=== PATIENT | female | born 1990 | race Hispanic/Latino ===

== ENCOUNTER 2020-02-17 05:35 | Day surgery (SDC) | payer MEDICAID ==
[2020-02-16 11:48] LABS: BASOPHILS % (AUTO) 0.5 % (0.0-5.0); EOSINOPHILS % (AUTO) 0.5 % (0.0-8.0); HEMATOCRIT 42.1 % (36-48); LYMPHOCYTES % (AUTO) 27.2 % (21.0-51.0); MEAN CORPUSCULAR HEMOGLOBIN 29.3 pg (27.0-33.0); MEAN CORPUSCULAR HGB CONC 32.3 g/dL (32.0-36.0); MEAN CORPUSCULAR VOLUME 90.7 fL (79-99); MONOCYTES % (AUTO) 5.4 % (3.0-13.0); NEUTROPHILS % (AUTO) 66.1 % (40.0-77.0); PLATELET COUNT (AUTO) 265 K/uL (130-400); RED BLOOD CELL COUNT(AUTO) 4.64 MIL/uL (4.00-5.50); RED CELL DISTRIBUTION WIDTH 14.5 % (11.0-15.5); WHITE BLOOD COUNT (AUTO) 6.3 K/uL (4.8-10.8)
[2020-02-16 16:06] VITALS: BP 121/60
[2020-02-17] VITALS (17 sets, daily range): BP systolic 105–131; BP diastolic 49–84
[~2020-02-17] VITALS: Ht 167.6 cm; Wt 74.4 kg
[~2020-02-17 05:35] MED LIST: CETI10TA57 PO; IBUP-2784 PO
[2020-02-17] MEDS ORDERED: CEFAZOLIN SODIUM 1 GM VIAL ONE (06:14)
[2020-02-17] MEDS ORDERED: LACTATED RINGERS 1000ML 1,000 ML IV ONE (06:14)
[2020-02-17] MEDS ORDERED: ACET1TAB25 PO (06:54)
[2020-02-17] MEDS ORDERED: MONT10TA26 PO (06:54)
[2020-02-17] MEDS ORDERED: CEPH500T PO (06:54)
[2020-02-17] MEDS ORDERED: MIDAZOLAM HCL 1 MG/ML 2ML VIAL ONE ×2 (07:33→08:32)
[2020-02-17] MEDS ORDERED: LACTATED RINGERS 1000ML 1,000 ML IV SCH (08:00)
[2020-02-17] MEDS ORDERED: DEXAMETHASONE SOD PHOSPHATE 10MG/ML 1ML VIAL ONE (08:32)
[2020-02-17] MEDS ORDERED: PROPOFOL 10 MG/ML 20ML VIAL IV ONE ×2 (08:32→09:48)
[2020-02-17] MEDS ORDERED: ONDANSETRON HCL 4 MG/2 ML VIAL ONE ×2 (08:32→10:32)
[2020-02-17] MEDS ORDERED: LIDOCAINE PF 2% 5ML ABBOJECT ONE (08:32)
[2020-02-17] MEDS ORDERED: ROCURONIUM 10MG/1ML SYR 10 MG/ML ML ONE (08:33)
[2020-02-17] MEDS ORDERED: FENTANYL CITRATE PF 50 MCG/1 ML 2ML VIAL ONE (08:33)
[2020-02-17] MEDS ORDERED: MEPERIDINE-PF 25 MG/ML SYG ONE ×2 (10:33→10:43)
--- NOTE | 2020-02-17 11:20 | NUR ---
post op received pt and report from nick stanton rn. pt in no distress at this time. pt oriented to room and call light. will continue to monitor pt.
--- NOTE | 2020-02-17 11:45 | NUR ---
md dr enrique called and spoke to friend with results.
--- NOTE | 2020-02-17 11:55 | NUR ---
discharge pt and friend given d/c instructions and voiced understanding. pt taken out via w/c by [facility].
== END 2020-02-17 11:55 | disposition home or self-care (01) ==
LOC: DAH 05:35
PROVIDERS: ATTEND Obstetrics & Gynecology
DX: N80.1 Endometriosis of ovary (principal); Z20.828 Contact with and (suspected) exposure to other viral communicable diseases; N73.6 Female pelvic peritoneal adhesions (postinfective); N93.9 Abnormal uterine and vaginal bleeding, unspecified
CPT/HCPCS: 36415 ×3; 58662; 84703; 85025; 86850; 86900; 86901; 88305; A4215 ×2; A4221; A4222; A4223; A4344; A4510; A4600; A4606; A4649 ×4; A4663; C1769 ×2; C9803; J1100; J2001; J2175 ×2; J2250 ×2; J2405 ×2; J2704 ×2; J3010; J7030; J7120 ×2; U0003; J0690

== ENCOUNTER 2022-12-01 08:03 | Observation (INO) | payer MEDICAID ==
[~2022-12-01] VITALS: Ht 167.6 cm; Wt 86.6 kg
[~2022-12-01 08:03] MED LIST changes: +ACET-2079 PO; +CEPH500T PO; +MONT-39 PO
[2022-12-01 08:04] VITALS: BP 154/70; PULSE 83; RESP 20
[2022-12-01 09:07] LABS: HEMATOCRIT 29.9 % (36-48); MEAN CORPUSCULAR HEMOGLOBIN 28.7 pg (27.0-33.0); MEAN CORPUSCULAR HGB CONC 32.8 g/dL (32.0-36.0); MEAN CORPUSCULAR VOLUME 87.4 fL (79-99); RED BLOOD CELL COUNT(AUTO) 3.42 MIL/uL (4.00-5.50); WHITE BLOOD COUNT (AUTO) 7.3 K/uL (4.8-10.8)
[2022-12-01 09:19] LABS: APPEARANCE,URINE CLOUDY (CLEAR); BILIRUBIN,URINE NEGATIVE (NEGATIVE); COLOR,URINE LIGHT-YELLOW (YELLOW); GLUCOSE, URINE (UA) NEGATIVE (NEGATIVE); KETONES,URINE NEGATIVE (NEGATIVE); LEUKOCYTE ESTERASE ,URINE 75 Leu/uL (NEGATIVE); NITRATE,URINE NEGATIVE (NEGATIVE); OCCULT BLOOD,URINE NEGATIVE (NEGATIVE); PROTEIN,URINE NEGATIVE (NEGATIVE); UROBILINOGEN,URINE 0.2 mg/dL (0.2-1.0)
[2022-12-01 09:20] LABS: ALANINE AMINOTRANSFERASE 11 U/L (12-78); ALBUMIN 2.3 g/dL (3.5-5.0); ASPARTATE AMINOTRANSFERASE 12 U/L (10-37); BILIRUBIN,DIRECT < 0.1 mg/dL (0.0-0.3); BILIRUBIN,TOTAL 0.2 mg/dL (0.2-1.0)
[2022-12-01 09:23] LABS: ADD UA MICROSCOPIC YES
[2022-12-01 09:38] LABS: BACTERIA,URINE RARE /HPF (None Seen); MUCUS,URINE RARE LPF (None Seen); RBC,URINE 0-1 /HPF (0-1); SQUAMOUS EPITHELIAL CELL,UR MOD /HPF (0-2)
== END 2022-12-01 10:05 | disposition home or self-care (01) ==
LOC: EDH 08:03 → LDH 08:04
PROVIDERS: ADMIT Obstetrics & Gynecology; ATTEND Obstetrics & Gynecology
DX: O62.9 Abnormality of forces of labor, unspecified (principal); O26.893 Other specified pregnancy related conditions, third trimester; L29.9 Pruritus, unspecified; Z3A.33 33 weeks gestation of pregnancy; Z79.899 Other long term (current) drug therapy
CPT/HCPCS: 59025; 80076; 85027; 87088; 81001; 36415; G0378 ×2; G0379

== ENCOUNTER 2022-12-02 06:30 | Observation (INO) | payer MEDICAID ==
[~2022-12-02] VITALS: Ht 167.6 cm; Wt 87.1 kg
[2022-12-02 06:31] VITALS: BP 173/91; PULSE 64; RESP 16
[2022-12-02] MEDS ORDERED: LACTATED RINGERS 1000ML IV PRN (07:00)
[2022-12-02 08:05] LABS: HEMATOCRIT 32.4 % (36-48); MEAN CORPUSCULAR HEMOGLOBIN 28.2 pg (27.0-33.0); MEAN CORPUSCULAR HGB CONC 32.7 g/dL (32.0-36.0); MEAN CORPUSCULAR VOLUME 86.2 fL (79-99); PLATELET COUNT (AUTO) 185 K/uL (130-400); RED BLOOD CELL COUNT(AUTO) 3.76 MIL/uL (4.00-5.50); RED CELL DISTRIBUTION WIDTH 14.1 % (11.0-15.5); WHITE BLOOD COUNT (AUTO) 7.2 K/uL (4.8-10.8)
[2022-12-02 08:23] LABS: EOSINOPHILS % (MANUAL) 1 % (1-6); LYMPHOCYTES % (MANUAL) 19 % (22-44); MAN.DIFF COMMENT-IMPRESSION MANUAL DIFFERENTIAL; MONOCYTES % (MANUAL) 3 % (2-9); PLATELET MORPHOLOGY COMMENT ADEQUATE; SEGMENTED NEUTROPHILS % 77 % (40-70); TOTAL CELLS COUNTED 100
[2022-12-02 09:12] LABS: ALBUMIN 2.6 g/dL (3.5-5.0); BILIRUBIN,TOTAL 0.1 mg/dL (0.2-1.0); CREATININE 0.5 mg/dL (0.5-1.5); POTASSIUM 3.9 mmol/L (3.5-5.1)
== END 2022-12-02 09:55 | disposition home or self-care (01) ==
LOC: EDH 06:30 → LDH 06:31
PROVIDERS: ADMIT Obstetrics & Gynecology; ATTEND Obstetrics & Gynecology
DX: O62.9 Abnormality of forces of labor, unspecified (principal); O26.893 Other specified pregnancy related conditions, third trimester; R10.9 Unspecified abdominal pain; Z3A.33 33 weeks gestation of pregnancy
CPT/HCPCS: 96361; 59025; 96360; 82150; 80053; 83690; 85025; 36415; G0378 ×3; G0379; J7120

== ENCOUNTER 2024-07-26 21:29 | Emergency (ER) | payer SELFPAY ==
[~2024-07-26] VITALS: Ht 167.6 cm; Wt 63.0 kg
[~2024-07-26 21:29] MED LIST changes: -ACET-2079 PO; -CEPH500T PO; -CETI10TA57 PO; +IBUP-2077 PO; -IBUP-2784 PO; -MONT-39 PO; +PREN-196 PO
--- NOTE | 2024-07-26 21:37 | NUR ---
UA CUP PROVIDED
--- NOTE | 2024-07-26 23:56 | ERN ---
General Chief Complaint: Upper Extremity Pain/Injury Stated Complaint: PAIN IN ARMS/SHOULDER,HANDS Time Seen by MD: 21:31 Source: patient History of Present Illness Initial Comments This is an otherwise healthy 33-year-old female who says that over the last two weeks she has had pain in her arms and shoulders and hands the pain is not constant it moves for example today it seems like her left shoulder and her right hand are affected. The patient also says that when she wakes up in the morning her arms and hands feel like they are swollen but when they look at them they are they are normal appearance. Patient has no other health problems she does not know of any events that happened two weeks ago. She does not remember any bug bites or any trauma that happened two weeks ago. There was no new stress in her life. Timing/Duration: 1 week, getting worse Severity: moderate Associated Symptoms: denies symptoms Allergies: Coded Allergies: No Known Drug Allergies (Unverified Allergy, Unknown, 02/16/20) Home Meds Reported Medications Ibuprofen (Ibuprofen 800 mg Tab) 800 Mg Tab, 800 MG PO Q8H PRN for PAIN, #30 TAB 01/11/23 Vit No.124/Iron/FA ( Vitamin Tablet) 27 Mg Iron-800 Mcg Tablet, 1 EACH PO DAILY, TAB 01/10/23 Past Medical History Past Medical History: No Pertinent History Past Surgical History: None Surgical History Other: OVARIAN CYST Female( History) LMP: Jul 08, 2024 : 3 Para: 2 Aborts: 1 Constitutional: (-) chills, (-) diaphoresis, (-) fever, (-) malaise, (-) weakness, (-) other documentation EENTM: (-) eye pain, (-) blurred vision, (-) tearing, (-) double vision, (-) ear pain, (-) ear discharge, (-) nose pain, (-) nose congestion, (-) throat pain, (-) Throat swelling, (-) mouth pain, (-) tooth pain, (-) mouth swelling, (-) other documentation Respiratory: (-) cough, (-) orthopnea, (-) short of breath, (-) stridor, (-) wheezing, (-) other documentation Cardiovascular: (-) chest pain, (-) edema, (-) palpitations, (-) syncope, (-) dyspnea on exertion, (-) other documentation Gastrointestinal/Abdominal: (-) nausea, (-) vomiting, (-) diarrhea, (-) abdominal pain, (-) abdominal distention, (-) constipation, (-) rectal bleeding, (-) dark stool/melena, (-) other documentation Musculoskeletal: (-) Neck pain, (-) back pain, (-) Flank Pain, (-) joint pain, (-) joint swelling, (-) muscle pain, (-) muscle stiffness, (-) gout, (-) other documentation Skin: (-) laceration, (-) contusion, (-) abrasion, (-) abscess, (-) rash, (-) change in color, (-) change in hair, (-) change in nails, (-) diaphoresis, (-) dryness, (-) other documentation Neuro: (+) altered mental status, (+) headache, (+) syncope, (+) paralysis, (+) numbness, (+) seizure, (+) pre-existing deficit, (+) tremors, (+) weakness, (+) dizziness, (+) slurred speech, (+) vertigo, (+) other documentation Physical Exam General Appearance: (+) moderate distress General Appearance comment 33-year-old female appearing healthy but distraught and teary-eyed over the worsening of her symptoms and the unpredictability of them. Head/Face Trauma: No Eye: bilateral eye normal inspection, bilateral eye PERRL, bilateral eye EOMI Ear, Nose, Throat: (+) hearing grossly normal, (+) normal ENT inspection, (+) moist mucous membraine, (+) normal pharynx Neck: (+) normal inspection, (+) supple, (+) full range of motion, (+) no JVD Respiratory: (+) chest non-tender, (+) lungs clear, (+) well ventilated Heart: (+) regular, (+) no gallop Vascular: (+) no edema, (+) normal peripheral pulse Gastrointestinal: (+) soft, (+) non-tender, (+) no organomegaly Results Laboratory and Microbiology Lab and Micro Result Laboratory Tests Test 07/26/24 23:55 4/5/25 23:59 Urine HCG, Qualitative NEGATIVE (NEGATIVE) White Blood Count 8.4 K/uL (4.8-10.8) Red Blood Count 4.26 MIL/uL (4.00-5.50) Hemoglobin 12.7 g/dL (12.0-16.0) Hematocrit 38.8 % (36-48) Mean Corpuscular Volume 91.1 fL (79-99) Mean Corpuscular Hemoglobin 29.8 pg (27.0-33.0) Mean Corpuscular Hemoglobin Concent 32.7 g/dL (32.0-36.0) Red Cell Distribution Width 13.6 % (11.0-15.5) Platelet Count 218 K/uL (130-400) Mean Platelet Volume 10.9 fL (7.5-10.5) H Immature Granulocyte % (Auto) 0.1 % (0-1) Neutrophils (%) (Auto) 55.7 % (40.0-77.0) Lymphocytes (%) (Auto) 34.6 % (21.0-51.0) Monocytes (%) (Auto) 7.8 % (3.0-13.0) Eosinophils (%) (Auto) 1.0 % (0.0-8.0) Basophils (%) (Auto) 0.8 % (0.0-5.0) Neutrophils # (Auto) 4.7 K/uL (1.8-7.7) Lymphocytes # (Auto) 2.9 K/uL (1.0-4.8) Monocytes # (Auto) 0.7 K/uL (0.1-1.0) Eosinophils # (Auto) 0.08 K/uL (0.00-0.70) Basophils # (Auto) 0.07 K/uL (0.00-0.20) Absolute Immature Granulocyte (auto 0.01 K/uL (0-1) Nucleated Red Blood Cells 0.0 % (0.0-0.19) Sodium Level 138 mmol/L (136-145) Potassium Level 4.2 mmol/L (3.5-5.1) Chloride Level 102 mmol/L (101-111) Carbon Dioxide Level 28 mmol/L (21-32) Blood Urea Nitrogen 16 mg/dL (7-18) Creatinine 0.7 mg/dL (0.5-1.0) Glomerular Filtration Rate Calc 118 mL/min (>90) Random Glucose 82 mg/dL (70-105) Total Calcium 8.4 mg/dL (8.5-10.1) L Total Bilirubin 0.3 mg/dL (0.2-1.0) Aspartate Amino Transf (AST/SGOT) 14 U/L (10-37) Alanine Aminotransferase (ALT/SGPT) 11 U/L (12-78) L Alkaline Phosphatase 70 U/L (50-136) Total Protein 7.1 g/dL (6.0-8.3) Albumin 3.5 g/dL (3.5-5.0) MDM Patient's symptoms are unusual. The feeling of swollen extremities with normal appearance in the morning is consistent with fibromyalgia as are her symptoms of moving and migrating pain. The symptoms are restricted to chest her bilateral upper extremities and no where else in her body, which is extremely rare in fibromyalgia. I will get a chemistry panel and a CBC. I will get a CT of her head and C-spine as well. So reading up on fibromyalgia, it is very rare for fibromyalgia to affect the upper extremities only. 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 I am concerned about spinal stenosis. Consistent with a this is the patient's inability to raise her left arm. And paresis is not a symptom of fibromyalgia either. I discussed the patient with the hospitalist service here and they wonder if patient would best be served at another hospital where there is both a neurosurgical and rheumatology services. ED Course Orders Procedure Category Date Status Time Ct Head/Brain W/O CT 07/26/24 Resulted Contrast 23:29 Ct Cervical Spine W/O CT 07/26/24 Resulted Contrast 23:29 Comprehensive LAB 07/26/24 Complete Metabolic Panel 23:52 Cbc With Differential LAB 07/26/24 Complete 23:52 ,Urine Test LAB 07/26/24 Complete 23:56 Cyclobenzaprine Hcl PHA 07/27/24 Complete (Cyclobenzaprine Hcl 01:30 Ketorolac PHA 07/27/24 Complete Tromethamine 15mg/Ml 01:30 Place Soft Collar (Er) CPOE 07/27/24 Transmitted 01:44 Current Medications Medications (Trade) Dose Ordered Sig/Willy Route PRN Reason Start Time Stop Time Status Last Admin Dose Admin Cyclobenzaprine HCl (Cyclobenzaprine HCl) 10 mg ONCE ONCE PO 07/27/24 01:30 07/27/24 01:31 DC 07/27/24 01:36 Ketorolac Tromethamine (toRADol) 15 mg ONCE ONCE IV 07/27/24 01:30 07/27/24 01:31 DC 07/27/24 01:43 Vital Signs Date Time Temp Pulse Resp B/P (MAP) Pulse Ox O2 Delivery O2 Flow Rate FiO2 07/27/24 03:31 97.2 63 16 100/51 98 Room Air* 0 21 07/26/24 23:33 97.5 71 18 124/65 98 Room Air* 0 21 07/26/24 21:30 98.1 93 20 138/98 99 Room Air DX & DISP Departure Condition: Stable Referrals: GEMMA ORTEGA MD (PCP) GLENN GALEANO MD Jul 26, 2024 23:56
[2024-07-27 00:11] LABS: BASOPHILS # (AUTO) 0.07 K/uL (0.00-0.20); BASOPHILS % (AUTO) 0.8 % (0.0-5.0); EOSINOPHILS # (AUTO) 0.08 K/uL (0.00-0.70); HEMATOCRIT 38.8 % (36-48); IMMATURE GRANULOCYTE ABSOLUTE 0.01 K/uL (0-1); LYMPHOCYTES # (AUTO) 2.9 K/uL (1.0-4.8); LYMPHOCYTES % (AUTO) 34.6 % (21.0-51.0); MEAN CORPUSCULAR HEMOGLOBIN 29.8 pg (27.0-33.0); MEAN CORPUSCULAR HGB CONC 32.7 g/dL (32.0-36.0); MEAN CORPUSCULAR VOLUME 91.1 fL (79-99); MONOCYTES # (AUTO) 0.7 K/uL (0.1-1.0); MONOCYTES % (AUTO) 7.8 % (3.0-13.0); NEUTROPHILS # (AUTO) 4.7 K/uL (1.8-7.7); NEUTROPHILS % (AUTO) 55.7 % (40.0-77.0); PLATELET COUNT (AUTO) 218 K/uL (130-400); RED BLOOD CELL COUNT(AUTO) 4.26 MIL/uL (4.00-5.50); RED CELL DISTRIBUTION WIDTH 13.6 % (11.0-15.5); WHITE BLOOD COUNT (AUTO) 8.4 K/uL (4.8-10.8)
[2024-07-27 00:27] LABS: CREATININE 0.7 mg/dL (0.5-1.0); POTASSIUM 4.2 mmol/L (3.5-5.1)
[2024-07-27 00:32] LABS: ALBUMIN 3.5 g/dL (3.5-5.0); BILIRUBIN,TOTAL 0.3 mg/dL (0.2-1.0); TOTAL PROTEIN, SERUM 7.1 g/dL (6.0-8.3)
--- NOTE | 2024-07-27 00:35 | HMCIMG ---
CT HEAD/BRAIN W/O CONTRAST HISTORY: Bilateral arm pain COMPARISON: None TECHNIQUE: Multiple sequential axial images of the head were obtained from the base of the skull through vertex. Patient was not given contrast through intravenous route. FINDINGS: The ventricles and extraventricular CSF spaces are nondilated for patient's age. There is no midline shift, mass effect or herniation. No acute intracranial bleed is seen. Visualized portion of the paranasal sinuses are grossly within normal limits. IMPRESSION: 1. No acute intracranial bleed is seen. CT was performed with one or more following dose reduction techniques: automated exposure control, adjustment of the mA and kv according to patient's size, or use of a iterative reconstruction technique.
--- NOTE | 2024-07-27 00:37 | HMCIMG ---
Bilateral arm pain CT CERVICAL SPINE W/O CONTRAST HISTORY: No additional history given. COMPARISON: None TECHNIQUE: Multiple sequential axial images of the cervical spine were obtained including post processing sagittal and coronal reconstruction images. Patient was not given contrast through intravenous route. FINDINGS: There is reversal. Endplate Schmorl's node is seen at C5 vertebral body. Of normal lordotic cervical curvature which may be related to muscle spasm or positioning. There is no loss of vertebral height. Evaluation for disc and cord pathology is limited with CT study. No evidence of fracture or dislocation is seen. IMPRESSION: 1. No fracture is seen. CT was performed with one or more following dose reduction techniques: automated exposure control, adjustment of the mA and kv according to patient's size, or use of a iterative reconstruction technique.
--- NOTE | 2024-07-27 01:30 | NUR ---
patient refused IV
[2024-07-27] MEDS: CYCLOBENZAPRINE HCL 10 MG TABLET PO ONE (01:36)
[2024-07-27] MEDS: ketOROlac 15MG/ML VIAL (15MG/ML) IV ONE (01:43)
--- NOTE | 2024-07-27 02:28 | NUR ---
SPOKE WITH MARIA ALEJANDRA AT [facility]. TRANSFER REQUEST INITIATED.
[2024-07-27 05:21] VITALS: BP 106/59; PULSE 65; RESP 16; TEMP 97.1; O2SAT 99
--- NOTE | 2024-07-27 05:27 | NUR ---
[facility] CONTACTED FOR TRANSFER TO [facility]OM [id number]
--- NOTE | 2024-07-27 05:39 | NUR ---
REPORT GIVEN TO JAYLA MEADOWS AT [facility] [place] [phone]
--- NOTE | 2024-07-27 08:24 | HMCIMG ---
Exam Type: SHOULDER COMP 2+VWS LT Clinical Information: pain unable to lift arm Comparison: None FINDINGS: The examination is unremarkable. Specifically, the glenohumeral and acromioclavicular joints are preserved. Visualized portions of the humerus, the scapula, and the clavicle as well as the upper ribcage are unremarkable. No pulmonary pathology is noted in the visualized portions of the upper lobe. The soft tissues are preserved. There are no other gross abnormalities. IMPRESSION: NORMAL EXAMINATION.
== END 2024-07-27 05:58 | disposition short-term general hospital (02) ==
LOC: EDH 21:29
DX: M25.512 Pain in left shoulder (principal); M79.641 Pain in right hand
CPT/HCPCS: 99285; 70450; 80053; 85025; 81025; 36415; 72125; 96374; 73030; J1885